=== PATIENT | male | born 1995 | race Hispanic/Latino ===

== ENCOUNTER 2017-08-11 17:43 | Emergency (ER) | payer OTHER ==
[2017-08-11 17:50] VITALS: TEMP 97.8; O2SAT 100
--- NOTE | 2017-08-11 18:23 | ED PDOC ---
HPI: Chest Pain Time Seen by Provider: 08/11/17 18:09 Chief Complaint (Nursing): Chest Pain Chief Complaint (Provider): Chest Pain History Per: Patient History/Exam Limitations: no limitations Onset/Duration Of Symptoms: Hrs (x 1) Current Symptoms Are (Timing): Still Present Additional Complaint(s): 21 year old male with a past medical history of asthma, was brought by [facility] presents to the ED complaining of sharp, right sided chest pain, onset 1 hour ago. He reports the pain is worse on expiration. Denies fever, shortness of breath and cough. PMD: non-[facility] provider (in [place]) Past Medical History Reviewed: Historical Data, Nursing Documentation, Vital Signs Vital Signs: Last Vital Signs Temp 97.8 F 08/11/17 17:47 Pulse 97 H 08/11/17 18:29 Resp 16 08/11/17 17:47 BP 145/77 08/11/17 18:29 Pulse Ox 100 08/11/17 18:36 - Medical History PMH: Asthma - Surgical History Surgical History: No Surg Hx - Family History Family History: States: Unknown Family Hx - Social History Current smoker - smoking cessation education provided: No Alcohol: None Drugs: Denies - Home Medications Home Medications: Ambulatory Orders Medication Instructions Recorded Naproxen [Naprosyn] 500 mg PO Q12H #20 tab 08/11/17 - Allergies Allergies/Adverse Reactions: Allergies Allergy/AdvReac Type Severity Reaction Status Date / Time No Known Allergies Allergy Verified 08/11/17 17:47 Review of Systems ROS Statement: Except As Marked, All Systems Reviewed And Found Negative Constitutional: Negative for: Fever Cardiovascular: Positive for: Chest Pain (sharp, right sided; worse on expiration) Respiratory: Negative for: Cough, Shortness of Breath Physical Exam - Reviewed Nursing Documentation Reviewed: Yes Vital Signs Reviewed: Yes - Physical Exam Appears: Positive for: Non-toxic, No Acute Distress Head Exam: Positive for: ATRAUMATIC, NORMOCEPHALIC Skin: Positive for: Normal Color, Warm, Dry Eye Exam: Positive for: Normal appearance, EOMI, PERRL Cardiovascular/Chest: Positive for: Regular Rate, Rhythm, Other (right sided chest wall tenderness). Negative for: Chest Non Tender, Murmur Respiratory: Positive for: Normal Breath Sounds (bilaterally) Gastrointestinal/Abdominal: Positive for: Normal Exam, Soft. Negative for: Tenderness Neurologic/Psych: Positive for: Alert, Oriented. Negative for: Motor/Sensory Deficits - ECG O2 Sat by Pulse Oximetry: 100 (RA) Pulse Ox Interpretation: Normal Medical Decision Making Medical Decision Making: Time: 18:18 Initial Plan: --Chest X-ray two views Scribe Attestation: Documented by Monae Leonardo, acting as a scribe for Josue Brooks MD Provider Scribe Attestation: All medical record entries made by the Scribe were at my direction and personally dictated by me. I have reviewed the chart and agree that the record accurately reflects my personal performance of the history, physical exam, medical decision making, and the department course for this patient. I have also personally directed, reviewed, and agree with the discharge instructions and disposition. Disposition - Clinical Impression Clinical Impression: Chest wall pain - Patient ED Disposition Is Patient to be Admitted: No Counseled Patient/Family Regarding: Studies Performed, Diagnosis, Need For Followup, Rx Given - Disposition Referrals: [facility] [Outside] Disposition: Routine/Home Disposition Time: 18:37 Condition: FAIR Prescriptions: Naproxen [Naprosyn] 500 mg PO Q12H #20 tab Instructions: Chest Wall Pain (ED) Forms: [employer] ([place]ian)
[2017-08-11 19:03] VITALS: BP 124/75; PULSE 82; RESP 14
--- NOTE | 2017-08-12 08:33 | RAD ---
HISTORY: right sided chest pain COMPARISON: No prior. TECHNIQUE: Chest PA and lateral FINDINGS: LUNGS: No active pulmonary disease. PLEURA: No significant pleural effusion identified. No pneumothorax apparent. CARDIOVASCULAR: Normal. OSSEOUS STRUCTURES: No significant abnormalities. VISUALIZED UPPER ABDOMEN: Normal. OTHER FINDINGS: None. IMPRESSION: No acute cardiopulmonary disease appreciated.
== END 2017-08-11 19:22 | disposition home or self-care (01) ==
LOC: H.ER 17:43
DX: R07.9 Chest pain, unspecified (principal); J45.909 Unspecified asthma, uncomplicated